=== PATIENT | female | born 1990 | race African-American/Black ===

== ENCOUNTER 2020-08-17 10:09 | Emergency (ER) | payer OTHER, SELFPAY ==
[2020-08-17 10:17] VITALS: BP 125/71; PULSE 82; RESP 18; TEMP 36.4; O2SAT 97; BMI 38.2
--- NOTE | 2020-08-17 10:50 | ED.BACK ---
HPI - Back Pain/Injury General Chief Complaint: Back Pain/Injury Stated Complaint: back pain Time Seen by Provider: 08/17/20 10:27 Source: patient Mode of arrival: ambulatory Limitations: no limitations History of Present Illness HPI Narrative: 30 y/o female with history of obesity, GERD who presents with lower back pain L>R that started last night after she made several trips of shopping bags from her car up to her apartment. She denies any of them being extremely heavy and does not recall a moment when she felt like she threw my back out., but the pain started after she was done making the trips. She took Tylenol and Motrin with minimal relief. She denies urinary symptoms, numbness, tingling, or incontinence. No hx IVDA. MD elicited complaint: back pain Onset (ago): day(s) (1) Timing: constant Severity: moderate Similar Symptoms Previously: Yes Quality: sharp and aching Location: right lower back and left lower back Radiation: none Exacerbating factors: movement and coughing/sneezing Relieving factors: immobilization Context: while lifting and turning/twisting Associated symptoms: denies other symptoms Treatments prior to arrival: NSAIDS and acetaminophen Work related injury: No Related Data Previous Rx's Medication Instructions Recorded cyclobenzaprine 10 mg PO TID PRN #15 tab 08/17/20 lidocaine [Lidoderm] 1 patch TOPICAL DAILY #15 ea 08/17/20 naproxen 500 mg PO BID PRN #20 tab 08/17/20 Allergies Allergy/AdvReac Type Severity Reaction Status Date / Time No Known Allergies Allergy Verified 08/17/20 10:19 [No Known Allergies*] Review of Systems Review of Systems: Constitutional: No Fever, No Chills Gastrointestinal: No Nausea, No Vomiting, No Diarrhea, No abdominal Pain Genitourinary: No Dysuria, No Urinary Frequency, No Hematuria Musculoskeletal: No joint pain, No Myalgias Skin: No Skin Lesions, No rash Neuro: No Weakness, No Numbness, No Dizziness, No Headache Heme/Lymph: No Bruising PMFSH Past Medical History Attestation statement: The following information was validated with the patient. Medical History No known health problems Social History Social History Advance Directives: No Advance Directives Information Provided: No Physical Exam Vital Signs: Vital Signs: Last Vital Signs Temp 97.6 F 08/17/20 10:17 Pulse 82 08/17/20 10:17 Resp 18 08/17/20 10:17 BP 125/71 08/17/20 10:17 Pulse Ox 97 08/17/20 10:17 Body Mass Index 38.2 Appearance: Alert. Oriented X3. No acute distress. HEENT: normal inspection Respiratory: No respiratory distress. Skin: Skin warm and dry. Normal skin color. Normal skin turgor. No rashes. Back: SI joint tenderness on the left with mid-low lumbar soft tissue tenderness L>R, no spinal tenderness. normal ROM Extremities: atruamatic, no LE edema Neuro: Oriented X 3. No motor deficit. No sensory deficit. Course Course Course Narrative: 30 y/o obese female here with low back pain after lifting yesterday. No red flag signs of low back pain. Likely musculoskeletal in nature. Will treat with muscle relaxers, NSAIDs and lidoderm. Stable for d/c. She will f/u with her PCP this week. MDM - Back Pain/Injury Differential Diagnosis Differential diagnosis: Likely lumbar radiculopathy, sciatica and strain of lumbar region Critical Care Time Critical Care Time Critical Care Time: No Discharge Plan Discharge Clinical Impression: Strain of lumbar region Qualifiers: Encounter type: initial encounter Qualified Code(s): S39.012A - Strain of muscle, fascia and tendon of lower back, initial encounter Patient Disposition: Home, Self-Care Instructions: Low Back Strain (ED), Lower Back Exercises (ED) Additional Instructions: Use ice and/or heat to the area several times per day. Limit bending, lifting >10 lbs, and twisting motions. Take prescribed medications as needed for pain and discomfort. Follow up with your doctor this week. If you develop numbness, tingling, loss of function, or incontinence call 911 or come back to the ER for further evaluation. Prescriptions: New cyclobenzaprine 10 mg tablet 10 mg PO TID PRN (Reason: muscle spasm) Qty: 15 RF: 0 lidocaine [Lidoderm] 5 % adhesive patch,medicated 1 patch topical DAILY Qty: 15 RF: 0 naproxen 500 mg tablet 500 mg PO BID PRN (Reason: pain) Qty: 20 RF: 0
[2020-08-17] MEDS: Ketorolac Tromethamine 30 MG/ML VIAL IM (10:56)
== END 2020-08-17 11:09 | disposition home or self-care (01) ==
PROVIDERS: Emergency Provider Internal Medicine; PCP Internal Medicine
DX: S39.012A Strain of muscle, fascia and tendon of lower back, initial encounter (principal); X50.0XXA Overexertion from strenuous movement or load, initial encounter; X50.3XXA Overexertion from repetitive movements, initial encounter; Y93.9 Activity, unspecified; Y92.9 Unspecified place or not applicable; Y99.9 Unspecified external cause status; Z79.899 Other long term (current) drug therapy
CPT/HCPCS: 96372; 99283; 99284; J1885